=== PATIENT | female | born 1930 | race Caucasian/White ===

== ENCOUNTER 2017-08-15 09:18 | Emergency (ER) | payer MEDICARE, OTHER ==
[~2017-08-15] VITALS: Ht 144.8 cm; Wt 37.2 kg
[~2017-08-15 09:18] MED LIST: ALPR1TAB6 PO; BISA10SU55 RC; CALC260T PO; FEXO1TAB31 PO; MULT1TAB52 PO; calcium PO
--- NOTE | 2017-08-15 09:46 | PHYS DOC ---
Past Medical History Past Medical History: Anxiety, Other Additional Past Medical Histor: seasonal allergies Past Surgical History: Other Additional Past Surgical Histo: right ovarian cyst removal Alcohol Use: None Drug Use: None Adult General Chief Complaint Chief Complaint: CONTISPATION [facility] HPI Patient is a 87 year old female who presents with, patient. She states she had a large bowel movement on Saturday after like cramps and then she states his been having [place] pebble since then. She's tried an enema and milk of magnesia and feels like she hasn't had a good BM since. She denies any nausea vomiting or abdominal pain. She denies any dysuria. She states she's had issues with constipation prior. Review of Systems Review of Systems Constitutional: Denies fever or chills [] Eyes: Denies change in visual acuity, redness, or eye pain [] HENT: Denies nasal congestion or sore throat [] Respiratory: Denies cough or shortness of breath [] Cardiovascular: No additional information not addressed in HPI [] GI: Denies abdominal pain, nausea, vomiting, bloody stools or diarrhea [] : Denies dysuria or hematuria [] Musculoskeletal: Denies back pain or joint pain [] Integument: Denies rash or skin lesions [] Neurologic: Denies headache, focal weakness or sensory changes [] Endocrine: Denies polyuria or polydipsia [] Current Medications Current Medications Current Medications Medications (Trade) Dose Ordered Sig/[facility] Start Time Stop Time Status Last Admin Dose Admin Magnesium Citrate (Citroma) 296 ml 1X ONCE 08/15/17 12:30 08/15/17 12:31 DC 08/15/17 12:55 296 ML Sodium Monofluorophosphate (Fleet Adult) 133 ml 1X ONCE 08/15/17 11:00 08/15/17 11:01 DC 08/15/17 11:16 133 ML Allergies Allergies Allergies Coded Allergies Type Severity Reaction Last Updated Verified erythromycin base Allergy Intermediate Rash 08/15/17 Yes oxytetracycline Allergy Intermediate Rash 08/15/17 Yes tetracycline Allergy Intermediate Rash 08/15/17 Yes Physical Exam Physical Exam Constitutional: Well developed, well nourished, no acute distress, non-toxic appearance. [] HENT: Normocephalic, atraumatic, bilateral external ears normal, oropharynx moist, no oral exudates, nose normal. [] Eyes: PERRLA, EOMI, conjunctiva normal, no discharge. [] Neck: Normal range of motion, no tenderness, supple, no stridor. [] Cardiovascular:Heart rate regular rhythm, no murmur [] Lungs & Thorax: Bilateral breath sounds clear to auscultation [] Abdomen: Bowel sounds normal, soft, no tenderness, no masses, no pulsatile masses. [] Skin: Warm, dry, no erythema, no rash. [] Back: No tenderness, no CVA tenderness. [] Extremities: No tenderness, no cyanosis, no clubbing, ROM intact, no edema. [] Neurologic: Alert and oriented X 3, normal motor function, normal sensory function, no focal deficits noted. [] Psychologic: Affect normal, judgement normal, mood normal. [] Current Patient Data Vital Signs Vital Signs Date Time Temp Pulse Resp B/P (MAP) Pulse Ox O2 Delivery O2 Flow Rate FiO2 08/15/17 12:55 74 20 150/80 (103) 98 Room Air 08/15/17 09:38 98.0 98.0 Lab Values Laboratory Tests Test 08/15/17 10:25 Urine Collection Type Void Urine Color Yellow Urine Clarity Cloudy Urine pH 8.0 Urine Specific Golden 1.015 Urine Protein Negative mg/dL (NEG-TRACE) Urine Glucose (UA) Negative mg/dL (NEG) Urine Ketones (Stick) Negative mg/dL (NEG) Urine Blood Negative (NEG) Urine Nitrite Negative (NEG) Urine Bilirubin Negative (NEG) Urine Urobilinogen Dipstick 0.2 mg/dL (0.2 mg/dL) Urine Leukocyte Esterase Negative (NEG) Urine RBC 0 /HPF (0-2) Urine WBC Occ /HPF (0-4) Urine Squamous Epithelial Cells Occ /LPF Urine Amorphous Sediment Present /HPF Urine Bacteria Few /HPF (0-FEW) Urine Mucus Mod /LPF EKG EKG [] Radiology/Procedures Radiology/Procedures [facility] [address] [place] [address] IMAGING REPORT Signed PATIENT: FRANCISCO JAVIER HUTCHINS ACCOUNT: [id number] : 1930 LOCATION: ER AGE: 87 SEX: F EXAM STATUS: REG ER ORD. PHYSICIAN: ISRA DING MD REASON: constipation 23 PROCEDURE: ACUTE ABDOMEN SERIES Acute abdomen series with chest, 08/15/2017: History: Constipation There is a moderate amount stool in the left colon extending down into the rectum. Gas is present in other loops of large and small bowel in a nonspecific pattern. No free air is seen in the abdomen. There is no evidence of organomegaly. Scattered vascular calcifications are present. The bony structures are demineralized. There is a moderate left convexity lumbar scoliosis with multilevel degenerative change. The heart size is normal. There appear to be mild scattered parenchymal scars. No acute infiltrate is seen. There is no evidence of pleural fluid. IMPRESSION: Increased stool in the left colon, similar to that seen on 08/08/2016. DICTATED and SIGNED BY: LILIYA MARCANO MD DATE: 08/15/17 1023 CC: ISRA DING MD; BRIDGER CONKLIN ~ Impressions: Constipation Course & Med Decision Making Course & Med Decision Making Pertinent Labs and Imaging studies reviewed. (See chart for details) Patient presented with constipation. Acute abdominal series shows constipation no other acute abnormality's. Labs are nonacute. Patient had a large bowel movement with an enema. She is feeling better. She's being discharged home with return precautions. Dragon Disclaimer Dragon Disclaimer This electronic medical record was generated, in whole or in part, using a voice recognition dictation system. Departure Departure Impression: Primary Impression: Constipation Disposition: 01 HOME, SELF-CARE Condition: STABLE Referrals: BRIDGER CONKLIN (PCP) Patient Instructions: Constipation, Adult, [id number] Additional Instructions: You were seen today in the ER for your constipation. You received an enema and had a large bowel movement. Your being discharged home. You can use mag citrate and drink half the bottle when he get home and if you don't have another bowel movement within 1-2 hours ago and finished drinking the rest the bowel movement. If you develop severe weakness, severe abdominal pain or other concerns please return back to emergency department. You should start taking MiraLAX and follow the instructions on the bottle to help prevent future episodes of constipation. Problem Qualifiers Primary Impression: Constipation Constipation type: unspecified constipation type Qualified Codes: K59.00 - Constipation, unspecified ISRA DING MD Aug 15, 2017 09:46
--- NOTE | 2017-08-15 10:28 | RAD ---
Acute abdomen series with chest, 08/15/2017: History: Constipation There is a moderate amount stool in the left colon extending down into the rectum. Gas is present in other loops of large and small bowel in a nonspecific pattern. No free air is seen in the abdomen. There is no evidence of organomegaly. Scattered vascular calcifications are present. The bony structures are demineralized. There is a moderate left convexity lumbar scoliosis with multilevel degenerative change. The heart size is normal. There appear to be mild scattered parenchymal scars. No acute infiltrate is seen. There is no evidence of pleural fluid. IMPRESSION: Increased stool in the left colon, similar to that seen on 08/08/2016.
[2017-08-15 10:54] LABS: BILIRUBIN,URINE NEGATIVE (NEG); GLUCOSE,URINE NEGATIVE (NEG); NITRITE,URINE NEGATIVE (NEG); PROTEIN,URINE NEGATIVE (NEG-TRACE); UROBILINOGEN,URINE 0.2 mg/dL (0.2 mg/dL)
[2017-08-15] MEDS ORDERED: SODIUM PHOSPHATES 19/7GM 133 ML ENEMA. PR ONE (11:00)
[2017-08-15 11:12] LABS: SQUAMOUS EPITHELIAL CELL,UR OCC /LPF
[2017-08-15 11:13] LABS: BACTERIA,URINE FEW /HPF (0-FEW); RBC,URINE 0 /HPF (0-2); WBC,URINE OCC /HPF (0-4)
[2017-08-15] MEDS ORDERED: MAGNESIUM CITRATE 296 ML SOLUTION. PO ONE (12:30)
[2017-08-15 12:55] VITALS: BP 150/80
== END 2017-08-15 13:00 | disposition home or self-care (01) ==
LOC: ER 09:18
DX: K59.00 Constipation, unspecified (principal); Z88.1 Allergy status to other antibiotic agents; Z88.8 Allergy status to other drugs, medicaments and biological substances
CPT/HCPCS: 74022; 81001; 99285-25